=== PATIENT | female | born 1985 | race Caucasian/White ===

== ENCOUNTER 2022-04-30 05:24 | Emergency (ER) | payer BC, SELFPAY ==
[2022-04-30 05:31] VITALS: BP 112/85; PULSE 90; RESP 16; TEMP 36.1; O2SAT 98
--- NOTE | 2022-04-30 05:48 | ED.GENADULT ---
HPI - General Adult General Chief complaint: Sore Throat Stated complaint: Severe sore throat Time Seen by Provider: 04/30/22 05:30 Source: patient Mode of arrival: ambulatory History of Present Illness HPI narrative: 36-year-old female presents to the emergency department in the middle of the night because of a sore throat for 3 days duration. No difficulty swallowing, no severe shortness of breath. No history of peritonsillar abscesses or throat surgeries. No trauma or injury. She has been sporadically using Tylenol and ibuprofen though she cannot accurately tell me the doses and timing of these, reports that it is not improving. She does have a preschool age child but states that they are not in school in do not have current illness symptoms or significant exposure risk. No known exposures to strep or other illnesses, no fevers. No nausea or vomiting. No cough. Has not tried saltwater gargles or other similar interventions to help with symptoms. Past medical history notable for ADHD, hypothyroidism. Reports that her home meds are bupropion, levothyroxine Adderall. She denies allergies. Socially with no pertinent travel, positive pediatric exposures as stated above. ROS is notable for the generalized and HEENT symptoms as above only, otherwise denies times 12 systems. Related Data Allergies Allergy/AdvReac Type Severity Reaction Status Date / Time No Known Drug Allergies Allergy Verified 04/30/22 05:34 PFSH [facility] Social History Smoking Status: Unknown if ever smoked How often do you have a drink containing alcohol: never AUDIT-C Alcohol total score: 0 Non-prescribed substance use: denies use Exam Const: Vital Signs, click to edit/add: Vital Signs - 24 hr 04/30/22 05:31 Temperature 97.0 F L Pulse Rate [Right Pulse Oximeter] 90 Respiratory Rate 16 Blood Pressure [Le ft Upper Arm] 112/85 Pulse Oximetry 98 Oxygen Delivery Me thod Room Air Documenting provider has reviewed patient's vital signs: yes Common normals: no apparent distress General appearance: cooperative and well kempt HENMT: Common normals: normocephalic, head/scalp atraumatic, TM's normal bilaterally and nasal mucous membranes and turbinates normal Head and scalp: normocephalic and atraumatic Face and sinus: normal facial exam Nose: nasal mucous membranes and turbinates normal Tympanic membrane: TM's normal bilaterally Other: Normal dentition, acyanotic lips. Mild erythema to the pharyngeal arches with blistery pattern consistent with viral process. The tonsils are 2+ with no exudate. No palatal petechiae. Eye: General eye: normal appearance of both eyes Neck & C-Spine: Other: Moderate anterior cervical and submandibular lymphadenopathy, normal range of motion of neck Resp: Common normals: normal respiratory effort, no use of accessory muscles and clear to auscultation bilaterally Effort & inspection: able to speak in complete sentences Auscultation: clear to auscultation bilaterally Cardio: Common normals: regular rate, regular rhythm, S1 normal heart sound, S2 normal heart sound and no murmurs Rate: regular rate Rhythm: regular rhythm Heart sounds: S1 normal and S2 normal Neuro: Speech: speech normal Gait (neuro): normal gait Motor exam: no tremor noted and no movement abnormalities noted Psych: Appearance: well kempt Activity/motor behavior: appropriate eye contact Mood and affect: euthymic mood Insight: insight good Judgement: judgment good Skin: Common normals: no rashes or lesions noted General skin exam: no rashes or lesions noted Course Vital Signs Vital signs: Initial Vital Signs Temperature 97.0 F L 04/30/22 05:31 Temperature Source Temporal Artery Scan 04/30/22 05:31 Pulse Rate 90 04/30/22 05:31 Pulse Rhythm 04/30/22 05:31 Respiratory Rate 16 04/30/22 05:31 Blood Pressure 112/85 04/30/22 05:31 Blood Pressure Mean 94 04/30/22 05:31 Blood Pressure Position Sitting 04/30/22 05:31 Pulse Oximetry 98 04/30/22 05:31 Oxygen Delivery Method 04/30/22 05:31 Vital Signs Temperature 97.0 F L 04/30/22 05:31 Pulse Rate 90 04/30/22 05:31 Respiratory Rate 16 04/30/22 05:31 Blood Pressure 112/85 04/30/22 05:31 Pulse Oximetry 98 04/30/22 05:31 Oxygen Delivery Method 04/30/22 05:31 Temperature 97.0 F L 04/30/22 05:31 Pulse Rate 90 04/30/22 05:31 Respiratory Rate 16 04/30/22 05:31 Blood Pressure 112/85 04/30/22 05:31 Pulse Oximetry 98 04/30/22 05:31 Oxygen Delivery Method 04/30/22 05:31 Medical Decision Making MDM Narrative Medical decision making narrative: Nontoxic appearance, no signs of any emergent issues. Recommended strep, influenza, COVID and RSV swab. Will be given naproxen for pain and reassessed. Swabs tend to take about 1 hour 15 minutes, updated patient on this. No signs of clinical dehydration or need for IV fluids. Update: Positive for strep, discussed options, elects for oral treatment. Amoxicillin 1000 mg p.o. x1, continue on typical dosing. Recheck with primary care provider if not starting to improve in 3 days. Push fluids. Tylenol, ibuprofen as needed for fever, comfort. Lab Data Lab results reviewed: Yes I reviewed the patient's lab results Labs: Lab Results 04/30/22 Range/Units 05:45 Group A Strep DNA DETECTED A (Not Detectd) Discharge Plan Discharge Clinical Impression: Acute streptococcal pharyngitis Patient Disposition: Home, Self-Care Condition: Stable Instructions: Strep Throat (ED) Additional Instructions: Your swab is positive for strep throat. This is a common bacterial infection. Your family needs to be tested if they become symptomatic, no one needs empiric treatment. Your started on antibiotics. Your given 1000 mg for your 1st dose of, you will be non contagious in 12 hours. Your next dose will be this evening, 7:00 p.m. or later. Continue taking 1 pill 2 times daily for the next 10 days. You will have a few leftover pills. It is okay to continue Tylenol, ibuprofen and/or Aleve. Remember that proper dosing of Tylenol is 2 extra-strength or 3 regular tablets every 6 hours. Ibuprofen is 600 mg every 6 hours which is 3 tablets as well. As an alternative, you may use Aleve, 2 pills 2-3 times daily. Most people start to feel markedly better in 48 hours. Push fluids and rest for the next day. You may return to work on Sunday. Follow up with her primary care provider if you are not starting to improve in 3 days. It is normal to still have some mild sore throat, fatigue and body aches but you should be mostly better by that time. Activity Level: Activity as Tolerated Discharge Diet: Regular Follow Up/Referrals: Titus García MD [Staff Physician] - Stand Alone Forms: [employer] Info Instructions
[2022-04-30] MEDS: NAPROXEN 250 MG TABLET 500 MG PO (06:16)
[2022-04-30 06:27] LABS: Strep A DNA Probe* DETECTED (Not Detectd)
[2022-04-30 06:35] LABS: PCR FLU A Negative PCR FLU A (Negative); PCR FLU B Negative PCR FLU B (Negative); PCR RSV Negative PCR RSV (Negative)
[2022-04-30] MEDS: AMOXICILLIN 250 MG CAPSULE 1000 MG PO (06:46)
[2022-04-30 06:51] VITALS: PULSE 90; RESP 18; TEMP 36.6; O2SAT 98
[2022-04-30 07:02] LABS: SARS PCR* Negative SARS-CoV-2 (Negative)
== END 2022-04-30 06:52 | disposition home or self-care (01) ==
PROVIDERS: Emergency Provider Family Medicine
DX: J02.0 Streptococcal pharyngitis (principal)
CPT/HCPCS: 87502; 87634; 87635; 87651; 99282; 99283; A9270